=== PATIENT | female | born 1965 | race Caucasian/White ===

== ENCOUNTER 2018-02-17 09:35 | Emergency (ER) | payer OTHER ==
[2018-02-17 09:35] VITALS: BMI 28.3
[2018-02-17] MEDS ORDERED: Sodium Chloride 0.9% 1,000 ML IV ONE (10:11)
[2018-02-17] MEDS ORDERED: Sodium Chloride 0.9% 1,000 ML ONE (10:42)
[2018-02-17 10:47] LABS: BASO % 0.8 % (0.0-2.0); EOS # 0.1 K/uL (0.0-0.7); EOS % 1.4 % (0.0-4.0); HEMOGLOBIN 14.1 g/dL (11.0-16.0); LYMPH # 2.4 K/uL (1.0-4.3); LYMPH % 39.3 % (20.0-40.0); MEAN CELL VOLUME 83.4 fL (81.0-99.0); MEAN CORPUSCULAR HEMOGLOBIN 27.9 pg (27.0-31.0); MEAN CORPUSCULAR HGB CONC 33.4 g/dL (33.0-37.0); MEAN PLATELET VOLUME 8.3 fL (7.2-11.7); MONO # 0.5 K/uL (0.0-0.8); MONO % 8.6 % (0.0-10.0); NEUT % 49.9 % (50.0-75.0); RBC 5.04 Mil/uL (3.80-5.20)
[2018-02-17 10:53] LABS: SQUAMOUS EPITHIAL 1 /hpf (0-5); URINE BACTERIA RARE (<OCC); URINE BILIRUBIN NEGATIVE (NEGATIVE); URINE BLOOD NEGATIVE (NEGATIVE); URINE CLARITY Clear (Clear); URINE COLOR Straw (YELLOW); URINE GLUCOSE (UA) NORMAL (Normal); URINE LEUKOCYTE ESTERASE NEG Leu/uL (Negative); URINE PROTEIN NEGATIVE (NEGATIVE); URINE UROBILINOGEN NORMAL mg/dL (0.2-1.0)
[2018-02-17 10:56] LABS: INR 1.4
--- NOTE | 2018-02-17 10:56 | RAD ---
Date of service: 02/17/2018 HISTORY: chest pain COMPARISON: Chest radiograph dated 03/23/2014. TECHNIQUE: Chest PA and lateral FINDINGS: LUNGS: No active pulmonary disease. PLEURA: No significant pleural effusion identified. No pneumothorax apparent. CARDIOVASCULAR: Normal. OSSEOUS STRUCTURES: Unchanged. VISUALIZED UPPER ABDOMEN: Normal. OTHER FINDINGS: None. IMPRESSION: No active disease.
[2018-02-17 10:58] LABS: PROTHROMBIN TIME 15.2 SECONDS (9.7-12.2)
--- NOTE | 2018-02-17 11:03 | C.PDOC ---
History Of Present Illness 53 year old female presents to the ED for evaluation of dizziness, weakness, fatigue and intermittent palpations for one week. Patient reports her dizziness is worse with head rotation. Patient admits she had been treated with Avelox for 5 days for a upper respiratory infection, and her last dose was two days ago. Otherwise, patient denies fever, chills, severe headache, vision change, focal deficits, chest pain and shortness of breath. Time Seen by Provider: 02/17/18 09:59 Chief Complaint (Nursing): Dizziness/Lightheaded History Per: Patient History/Exam Limitations: no limitations Onset/Duration Of Symptoms: Intermittent Episodes, Other (one week ) Current Symptoms Are (Timing): Still Present Associated Symptoms Preceding Syncopal Episode: Vertigo Worse With Change In Head Position Fall Associated With With Symptoms: No Additional History Per: Patient Past Medical History Reviewed: Historical Data, Nursing Documentation, Vital Signs Vital Signs: Last Vital Signs Temp 98.3 F 02/17/18 09:43 Pulse 75 02/17/18 09:43 Resp 16 02/17/18 09:43 BP 153/93 H 02/17/18 09:43 Pulse Ox 99 02/17/18 11:10 - Medical History PMH: Asthma Surgical History: No Surg Hx Family History: States: Unknown Family Hx - Social History Hx Tobacco Use: No Hx Alcohol Use: No Hx Substance Use: No - Immunization History Hx Tetanus Toxoid Vaccination: No Hx Influenza Vaccination: No Hx Pneumococcal Vaccination: No Review Of Systems Constitutional: Positive for: Weakness. Negative for: Fever, Chills Eyes: Negative for: Vision Change Cardiovascular: Negative for: Chest Pain Respiratory: Negative for: Shortness of Breath Neurological: Positive for: Dizziness. Negative for: Weakness, Numbness Physical Exam - Physical Exam Appears: Non-toxic, No Acute Distress Skin: Normal Color, Warm, Dry Head: Atraumatic, Normacephalic Eye(s): bilateral: Normal Inspection Ear(s): Bilateral: Normal Nose: Normal, No Flaring Oral Mucosa: Moist Neck: Supple Chest: Symmetrical, No Deformity, No Tenderness Cardiovascular: Rhythm Regular, No Murmur Respiratory: Normal Breath Sounds, No Rales, No Rhonchi, No Wheezing Extremity: Normal ROM, Capillary Refill (less than 2 seconds ) Neurological/Psych: Oriented x3, Normal Speech Gait: Steady ED Course And Treatment - Laboratory Results Result Diagrams: 02/17/18 10:39 02/17/18 10:39 O2 Sat by Pulse Oximetry: 99 (on RA) Pulse Ox Interpretation: Normal - Other Rad CXR X-Ray: Interpreted by Me, Viewed By Me, Read By Radiologist Interpretation: Date of service: 02/17/2018. HISTORY: chest pain. COMPARISON : Chest radiograph dated 03/23/2014. TECHNIQUE: Chest PA and lateral. FINDINGS: LUNGS: No active pulmonary disease. PLEURA: No significant pleural effusion identified. No pneumothorax apparent. CARDIOVASCULAR: Normal. OSSEOUS STRUCTURES: Unchanged. VISUALIZED UPPER ABDOMEN: Normal. OTHER FINDINGS: None. IMPRESSION: No active disease. Progress Note: Bloodwork, urinalysis, CXR, CT Head, EKG ordered and reviewed. Patient given IV Fluids. Disposition - Disposition Forms: [email or web address] (Occitan) - Scribe Statement The provider has reviewed the documentation as recorded by the Scribe (Lian Farrar) All medical record entries made by the Scribe were at my direction and personally dictated by me. I have reviewed the chart and agree that the record accurately reflects my personal performance of the history, physical exam, medical decision making, and the department course for this patient. I have also personally directed, reviewed, and agree with the discharge instructions and disposition.
[2018-02-17 11:07] LABS: ALB/GLOB RATIO 1.4 (1.0-2.1); ALBUMIN 4.4 g/dL (3.5-5.0); ALT/SGPT 42 U/L (9-52); AST/SGOT 21 U/L (14-36); BLOOD UREA NITROGEN 7 mg/dL (7-17); CALCIUM 9.6 mg/dl (8.6-10.4); GFR AFRICAN-AMERICAN > 60; GFR NON-AFRICAN AMERICAN > 60
--- NOTE | 2018-02-17 11:23 | C.PDOC ---
History Of Present Illness 53 year old female presents to the ED for evaluation of dizziness, weakness, fatigue and intermittent palpations for one week. Patient reports her dizziness is worse with head rotation. Patient admits she had been treated with Avelox for 5 days for a upper respiratory infection, and her last dose was two days ago. Otherwise, patient denies fever, chills, severe headache, vision change, focal deficits, chest pain, shortness of breath, dyspnea, palpitation, abd. pain , N/V/D, UTi sx. Ambulate to Ed for evaluation with stable giat, not in any apparent distress.. Time Seen by Provider: 02/17/18 09:59 Chief Complaint (Nursing): Dizziness/Lightheaded History Per: Patient History/Exam Limitations: no limitations Onset/Duration Of Symptoms: Intermittent Episodes, Other (1 week ) Associated Symptoms Preceding Syncopal Episode: Vertigo Worse With Change In Head Position Fall Associated With With Symptoms: No Past Medical History Reviewed: Historical Data, Nursing Documentation, Vital Signs Vital Signs: Last Vital Signs Temp 98.1 F 02/17/18 12:39 Pulse 83 02/17/18 12:39 Resp 18 02/17/18 12:39 BP 143/86 02/17/18 12:39 Pulse Ox 100 02/17/18 12:39 - Medical History PMH: Asthma Surgical History: No Surg Hx Family History: States: Unknown Family Hx - Social History Hx Tobacco Use: No Hx Alcohol Use: No Hx Substance Use: No - Immunization History Hx Tetanus Toxoid Vaccination: No Hx Influenza Vaccination: No Hx Pneumococcal Vaccination: No Review Of Systems Constitutional: Positive for: Weakness, Other (fatigue ). Negative for: Fever, Chills Eyes: Negative for: Vision Change Cardiovascular: Positive for: Palpitations. Negative for: Chest Pain Respiratory: Negative for: Shortness of Breath Neurological: Positive for: Dizziness Physical Exam - Physical Exam Appears: Well, Non-toxic, No Acute Distress Skin: Normal Color, Warm, Dry Head: Normacephalic Eye(s): bilateral: PERRL Ear(s): Bilateral: Normal Nose: No Flaring, No Discharge, No Deformity Oral Mucosa: Moist, No Drooling Tongue: Normal Appearing Lips: Normal Appearing Throat: No Erythema, No Drooling Neck: Trachea Midline, No Midline Cervical Tenderness, No Paracervical Tenderness, No Step Off Deformity, Supple Chest: Symmetrical, No Deformity, No Tenderness Cardiovascular: Rhythm Regular, No Murmur, No JVD, Other ((-) carotid bruits B/L ) Respiratory: No Decreased Breath Sounds, No Accessory Muscle Use, No Stridor, No Wheezing Gastrointestinal/Abdominal: Soft, No Tenderness, No Distention, No Guarding Back: No CVA Tenderness Extremity: Normal ROM, No Pedal Edema, Capillary Refill (less than 2 seconds ), No Swelling Neurological/Psych: Oriented x3, Normal Speech Gait: Steady ED Course And Treatment - Laboratory Results Result Diagrams: 02/17/18 10:39 02/17/18 10:39 Lab Interpretation: Normal ECG: Interpreted By Me, Viewed By Me ECG Rhythm: Sinus Rhythm Interpretation Of ECG: SR@83/min, NAD, no acute T wave or ST-T changes. O2 Sat by Pulse Oximetry: 99 (on RA) Pulse Ox Interpretation: Normal - Radiology CXR: Interpreted by Me, Read By Radiologist CXR Interpretation: Yes: No Acute Disease - CT Scan/US CT head w/o contrast Other Rad Studies (CT/US): Radiology Report Reviewed CT/US Interpretation: Creator : Keyanna Morales. Dictator : Leonard Rodrigez MD. Sales Service Coordinator : Cashier : Leonard Rodrigez MD. Approver2 : Report Date : 02/17/2018 11:44:09. My Comment : . Date of service: 02/17/2018. PROCEDURE: CT HEAD WITHOUT CONTRAST. HISTORY: dizizness, headache. COMPARISON: None available. TECHNIQUE: Axial computed tomography images were obtained through the head/brain without intravenous contrast. Radiation dose: Total exam DLP = 830.8 mGy-cm. This CT exam was performed using one or more of the following dose reduction techniques: Automated exposure control, adjustment of the mA and/or kV according to patient size, and/or use of iterative reconstruction technique. FINDINGS: HEMORRHAGE: No intracranial hemorrhage. BRAIN: No mass effect or edema. Mild atrophy. Mild chronic microvascular ischemic changes. VENTRICLES: Unremarkable. No hydrocephalus. CALVARIUM: Unremarkable. PARANASAL SINUSES: Unremarkable as visualized. No significant inflammatory changes. MASTOID AIR CELLS: Underpneumatized mastoid air cells. OTHER FINDINGS: None. IMPRESSION: No acute intracranial pathology. Age- related changes. Progress Note: Bloodwork, urinalysis, CXR, CT Head, EKG ordered and reviewed. Patient given IV Fluids. Pt was OBS in ED for 2.5 hours and remained stable. On re-evaluation, pt is afebrile, hemodynamicaly stable. Non-toxic. Ambulatory in ED with stable gait. neck: Supple, (-) JVD, (-) caroti bruits B/ L. Lungs: CTA B/L, BS equal B/L. CVS: (+)S1S2, reg, (-) murmur. Abd: benign, (-) guarding, (-) rebound. back: (-) CVA tenderness. neurologicaly intact. Blood work review and appears normal. troponin- negative. EKG, CXR- no acute findings. CT head w/o contrast- normal study. Pt has clinical findings c/w dizziness, nos. at bedside, eval patient. recommend meclizine with discharge and outpt f/u. Pt advised. ref. to f/u with PMD, Neurology in 2 -3 days for re-evaluation. return to ED if any worsening or new changes. Disposition Counseled Patient/Family Regarding: Studies Performed, Diagnosis, Need For Followup - Disposition Referrals: Teddy Osullivan MD [Medical Doctor] - Bakari Keys MD [Staff Provider] - Disposition: HOME/ ROUTINE Disposition Time: 12:06 Condition: STABLE Additional Instructions: Encourage fluids Follow up with PMD, Neurology and Cardiology in 1-2 days for re-evaluation. return to Ed if any worsening or new changes. 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 - Scribe Statement The provider has reviewed the documentation as recorded by the Scribe (Lian Farrar) All medical record entries made by the Scribe were at my direction and personally dictated by me. I have reviewed the chart and agree that the record accurately reflects my personal performance of the history, physical exam, medical decision making, and the department course for this patient. I have also personally directed, reviewed, and agree with the discharge instructions and disposition.
[2018-02-17 11:24] LABS: T4 7.98 ug/dL (5.5-11.0)
[2018-02-17 11:38] LABS: T3 1.56 nmol/L (1.49-2.60)
--- NOTE | 2018-02-17 12:00 | CT ---
Date of service: 02/17/2018 PROCEDURE: CT HEAD WITHOUT CONTRAST. HISTORY: dizizness, headache COMPARISON: None available. TECHNIQUE: Axial computed tomography images were obtained through the head/brain without intravenous contrast. Radiation dose: Total exam DLP = 830.8 mGy-cm. This CT exam was performed using one or more of the following dose reduction techniques: Automated exposure control, adjustment of the mA and/or kV according to patient size, and/or use of iterative reconstruction technique. FINDINGS: HEMORRHAGE: No intracranial hemorrhage. BRAIN: No mass effect or edema. Mild atrophy. Mild chronic microvascular ischemic changes. VENTRICLES: Unremarkable. No hydrocephalus. CALVARIUM: Unremarkable. PARANASAL SINUSES: Unremarkable as visualized. No significant inflammatory changes. MASTOID AIR CELLS: Underpneumatized mastoid air cells. OTHER FINDINGS: None. IMPRESSION: No acute intracranial pathology. Age-related changes.
[2018-02-17 12:40] VITALS: BP 143/86; PULSE 83; RESP 18; TEMP 98.1
[2018-02-17 14:29] VITALS: O2SAT 99
--- NOTE | 2018-02-18 17:17 | CARD ---
APPROVED REPORT Date of service: 02/17/2018 EKG Measurement Heart [id number] <Conclusion> Normal sinus rhythm Normal ECG
== END 2018-02-17 12:42 | disposition home or self-care (01) ==
LOC: C.ER 09:35
DX: R42 Dizziness and giddiness (principal)
CPT/HCPCS: 70450; 71046; 80053; 81001; 84436; 84443; 84480; 84484; 85025; 85610; 85730; 93005; 96360; 99285; J7030